=== PATIENT | male | born 1965 ===

== ENCOUNTER 2024-02-28 10:23 | Emergency (ER) | payer OTHER ==
[~2024-02-28] VITALS: Ht 172.7 cm; Wt 109.0 kg
[2024-02-28] MEDS: OLANZapine 5 MG TAB PO ONE (11:14)
[2024-02-28 13:45] LABS: Amphetamine Screen, Urine Neg (NEGATIVE)
[2024-02-28 13:47] LABS: Barbiturate Scree,Urine Neg (NEGATIVE); Benzodiazephine Screen, Urine Neg (NEGATIVE); Cocaine Screen, Urine Neg (NEGATIVE); Opiate Scree,Urine Neg (NEGATIVE); Phencyclidine Screen, Urine Neg (NEGATIVE)
[2024-02-28 13:48] LABS: Cannabinoid Screen, Urine Pos (NEGATIVE)
[2024-02-28] MEDS: QUEtiapine FUMARATE 100 MG TAB PO SCH (21:02)
[2024-02-29] MEDS ORDERED: FLUoxetine HCL 20 MG CAP PO SCH (10:00)
[2024-02-29] MEDS: FLUoxetine HCL 20 MG CAP PO ONE (11:14)
[2024-02-29] MEDS: LORazepam 0.5 MG TAB PO STA (13:09)
[2024-02-29 19:30] VITALS: PULSE 84; RESP 16
[2024-03-01 07:30] VITALS: PULSE 73; RESP 14; O2SAT 92
[2024-03-01] MEDS: FLUoxetine HCL 20 MG CAP PO SCH (10:14)
[2024-03-01 21:30] VITALS: PULSE 68; RESP 13; O2SAT 95
[2024-03-02 07:45] VITALS: BP 135/105; PULSE 98; RESP 16; TEMP 98.3; O2SAT 95
== END 2024-03-02 11:44 | disposition home or self-care (01) ==
LOC: EDBD 10:23 → ER 10:23
DX: R45.851 Suicidal ideations (principal); J45.909 Unspecified asthma, uncomplicated; F20.9 Schizophrenia, unspecified
CPT/HCPCS: 80307